=== PATIENT | female | born 1980 | race Caucasian/White ===

== ENCOUNTER → 2021-08-20 13:46 | Outpatient (CLI) | payer OTHER, SELFPAY ==
--- NOTE | 2021-08-20 13:52 | MM_ITS ---
PROCEDURE INFORMATION: Exam: Bilateral Diagnostic Breast Tomosynthesis Exam date and time: 08/20/2021 1:52 PM Age: 41 years old Clinical indication: Right breast palpable lump for about 3 weeks TECHNIQUE: Imaging protocol: Bilateral Diagnostic tomosynthesis and 2D mammography including computer-aided detection (CAD) when performed. Unilateral or bilateral exam. COMPARISON: No relevant prior studies available. FINDINGS: MAMMOGRAPHY: The breast tissue is extremely dense, limiting the sensitivity of mammography. In the region of palpable concern, there is a mostly obscured 2 cm mildly irregular mass approximating 2-3 o'clock. No associated architectural distortion or suspicious calcifications No suspicious findings are present within the left breast No axillary adenopathy IMPRESSION: Ultrasound assessment is required to further characterize a right breast palpable lump which appears to correspond with the 2 cm mostly obscured right breast mass ASSESSMENT: BI-RADS 0, incomplete, needs additional imaging evaluation
--- NOTE | 2021-08-20 13:53 | US_ITS ---
PROCEDURE INFORMATION: Exam: US Right Breast, Complete Exam date and time: 08/20/2021 1:53 PM Age: 41 years old Clinical indication: Patient presents with right breast palpable lower inner anterior lump for about 3 weeks. Diagnostic mammogram performed same day demonstrated a possible 2 cm 2-3 o'clock mass TECHNIQUE: Imaging protocol: Complete ultrasound of all four quadrants of the Right breast and the retroareolar regions, including ultrasound of the axilla when performed. COMPARISON: MG MM DIG MAMM BI DX W/CAD 08/20/2021 2:00 PM FINDINGS: Breast: In the region of palpable concern, 5 o'clock right periareolar breast there is a 3 x 3 by 5 mm horizontal hypoechoic mass without posterior shadowing or architectural distortion. This may reflect a complicated cyst. In the 12 o'clock periareolar right breast there is a anechoic horizontal circumscribed 16 mm mass with posterior acoustic enhancement. This has features of a benign cyst. Incidental 4 mm benign-appearing cyst along the 11 o'clock periareolar breast. No axillary adenopathy IMPRESSION: Six-month follow-up targeted ultrasound is recommended to assure stability of suspected incidental 5 mm complicated cyst or fibroadenoma along the 5 o'clock axis region of palpable concern and 12 o'clock periareolar suspected cyst. If symptoms were to progress or to be suspicious clinically, additional assessment with MRI or biopsy should be considered. ASSESSMENT: BI-RADS category 3: Probably benign
== END ==
PROVIDERS: PCP Family Medicine; Visit Provider Family Medicine
DX: N63.10 Unspecified lump in the right breast, unspecified quadrant (principal)
CPT/HCPCS: 76641; 77062; 77066; G0279

== ENCOUNTER → 2021-12-17 13:53 | Outpatient (CLI) | payer OTHER, SELFPAY ==
--- NOTE | 2021-12-17 13:59 | US_ITS ---
FINAL REPORT CLINICAL HISTORY: RLQ ABDOMINAL PAIN FINDINGS: Transvaginal sonographic images of the pelvis were obtained. The uterus measures 8.5 x 4.0 x 3.1 cm. There is a 3.8 x 2.4 cm fibroid in the uterus. The endometrium measures 10 mm, which is within normal limits. No uterine mass is identified. The right ovary measures 4.2 cm in length and left ovary measures 3.6 cm in length there are multiple cysts in left ovary measuring up to 2.3 cm.. Normal blood flow seen to the ovaries. There is no evidence of free fluid. IMPRESSION: Left ovarian cysts up to 2.3 cm. If indicated, follow-up ultrasound. Uterine fibroid. Reviewed, Interpreted and Dictated by Maurizio Lockwood III, MD Transcribed by Hema Macedo Authenticated by Maurizio Lockwood III, MD on 12/17/2021 03:45:49 PM [facility]
== END ==
PROVIDERS: PCP Family Medicine; Visit Provider Family Medicine
DX: R10.31 Right lower quadrant pain (principal)
CPT/HCPCS: 76830

== ENCOUNTER → 2022-11-26 15:54 | Outpatient (CLI) | payer OTHER, SELFPAY ==
--- NOTE | 2022-11-26 16:01 | MM_ITS ---
PROCEDURE INFORMATION: Exam: MG Bilateral Screening 3D Mammography Exam date and time: 11/26/2022 3:55 PM Age: 42 years old Clinical indication: Screening examination TECHNIQUE: Imaging protocol: Bilateral Screening tomosynthesis and 2D mammography including computer-aided detection (CAD) when performed. COMPARISON: 1. MG MM DIG MAMM BI DX W/CAD 08/20/2021 2:00 PM 2. US BREAST RT COMPLETE 08/20/2021 2:29 PM FINDINGS: MAMMOGRAPHY: Breast composition: The breasts are extremely dense, which lowers the sensitivity of mammography. Mass: None. Architectural distortion: None. Calcifications: No suspicious calcifications. Asymmetric density: None. Skin thickening: None. Axillary adenopathy: None. IMPRESSION: No mammographic evidence of malignancy. Annual screening is recommended unless otherwise clinically indicated. ASSESSMENT: BI-RADS Category 1: Negative
== END ==
PROVIDERS: PCP Family Medicine; Visit Provider Family Medicine
DX: Z12.31 Encounter for screening mammogram for malignant neoplasm of breast (principal)
CPT/HCPCS: 77063; 77067